=== PATIENT | female | born 1935 | race Caucasian/White ===

== ENCOUNTER 2016-07-05 14:28 | Inpatient (IN) | payer OTHER ==
--- NOTE | ~2016-07-05 | DS ---
Discharge Summary [id number] [place]. [address] NAME: MICHELLE ROBLES : 39 STATUS : DIS IN PAT#: [id number] AGE: 81 ADM/REG DATE : 07/06/16 MR#: [id number] REPORT SERV DATE: 07/14/16 DICTATED BY: PAULY TERRY DATE: 07/13/16 REPORT STATUS : Draft TRANSCRIBED BY: BRIANNA DATE: 07/13/16 ADMISSION DATE: 07/06/2016 DISCHARGE DATE: 07/09/2016 DISCHARGE DIAGNOSES: 1. Right humerus fracture. 2. Hypertension. 3. Urinary tract infection, present on arrival. 4. Cerebrovascular accident history. 5. Right leg swelling with negative ultrasound. DISCHARGE DISPOSITION: SNF to follow up in two to four weeks for humeral fracture. MEDICATIONS: Amlodipine 10 mg one tab p.o. daily; Levaquin 750 mg one tab p.o. at 1800 hours, stop on 07/11/2016; lisinopril 20 mg one tab p.o. daily; clonidine 0.2 mg topical q.7 days; Tylenol over the counter; [place] 5/325 one tab p.o. q.6 hours as needed for breakthrough pain; Zofran 4 q.4; docusate 100 mg one tab p.o. as needed p.r.n. constipation; and Senokot two tabs p.o. at bedtime as needed for constipation. CODE STATUS: DNR. HOSPITAL COURSE: Please see H and P for complete details. HISTORY OF PRESENT ILLNESS: Briefly, Ms. Robles is a 81-year-old female with a past medical history of CVA and expressive aphasia, who reports after having same-level fall and subsequent humeral fracture. The patient was admitted with humeral fracture and additionally same-level fall with also recurrent UTI requiring IV antibiotics. The patient since fall and UTI had decompensation resulting in decreased ability of taking care of self and prior level care with decreased level functioning and ability to care for self particularly from her baseline. The patient was admitted for PT and OT evaluation, orthopedic evaluation. Continue supportive treatment for placement for custodial facility. On day of discharge, son was available, who also expressed difficulties of being able to get patient back to her baseline currently from her prior status due to acute event and was requesting that she would need some extra help to get her back to that prior baseline. The patient was discharged to custodial facility with followup with orthopedic in two to four weeks. DICTATED BY: MD SUGEY Doan/BRIANNA Pauly Terry MD Discharge Summary [address] [address] NAME: MICHELLE ROBLES : 37 STATUS : DIS IN PAT#: [id number] AGE: 81 ADM/REG DATE : 07/06/16 MR#: [id number] REPORT SERV DATE: 07/14/16 DICTATED BY: PAULY TERRY DATE: 07/13/16 REPORT STATUS : Draft TRANSCRIBED BY: BRIANNA DATE: 07/13/16 / [id number] CC: Pauly Terry MD
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
[2016-07-05] MEDS ORDERED: PRIN20 PO (14:34)
[2016-07-05] MEDS ORDERED: ACET500CAP PO (14:36)
[2016-07-06 04:12] LABS: ASCORBIC ACID (UR NOT ORDER) NEG (NEG); BILIRUBIN, URINE NEGATIVE (NEG); KETONE, URINE NEGATIVE (NEG); LEUKOCYTE ESTERASE(NOT OR LARGE (NEG)
[2016-07-06 04:28] LABS: BASOPHILS 0.1 %; BASOPHILS ABSOLUTE 0.01 10/3/uL (0.0-0.16); EOSINOPHILS 0 %; IMMATURE GRANULOCYTES 0.2 %; IMMATURE GRANULOCYTES ABSOLUTE 0.02 10/3/uL (0.0-0.11); LYMPHOCYTES 9.4 %; LYMPHOCYTES ABSOLUTE 0.89 10/3/uL (0.67-4.30); MEAN CORPUS HGB CONC 33.9 g/dL (32.0-36.0); MEAN CORPUSCULAR HEMOGLOB 28.8 pg (26.0-34.0); MEAN PLATELET VOLUME 9.8 fL (9.2-13.0); MONOCYTES 12.5 %; MONOCYTES ABSOLUTE 1.18 10/3/uL (0.21-1.20); NEUTROPHILS 77.8 %; NEUTROPHILS ABSOLUTE 7.36 10/3/uL (2.02-8.40); PLATELET COUNT 235 10/3/uL (150-400); RED CELL COUNT 4.17 10/6/uL (4.0-5.6); WHITE BLOOD CELLS 9.5 10/3/uL (4.5-10.5)
[2016-07-06 04:29] LABS: HEMATOCRIT 35.4 % (36.0-48.0); MANUAL DIFF NO %; MEAN CORPUSCULAR VOLUME 84.9 fL (80-100); RBC DISTRIBUTION WIDTH 17.2 % (12.0-16.0)
[2016-07-06 04:30] LABS: WBC (NOT ORDERED) (RFLEX) > 182 (0-5)
[2016-07-06 04:37] LABS: BUN (BLOOD UREA NITROGEN) 21 MG/DL (6-23); CALCIUM, SERUM 8.4 MG/DL (8.5-10.4); CHLORIDE, SERUM 105 MMOL/L (96-112); CO2 (CARBON DIOXIDE) 27 MMOL/L (24-34); CREATININE 0.82 MG/DL (0.55-1.02); GFR AFRICAN AMERICAN 79 ML/MIN (>=60); GFR NON AFRICAN AMERICAN 68 ML/MIN (>=60); GLUCOSE, SERUM 120 MG/DL (60-99); SODIUM, SERUM 139 MMOL/L (135-148)
[2016-07-07 04:29] LABS: BASOPHILS 0.3 %; BASOPHILS ABSOLUTE 0.02 10/3/uL (0.0-0.16); EOSINOPHILS 0.3 %; EOSINOPHILS ABSOLUTE 0.02 10/3/uL (0.0-0.53); HEMATOCRIT 36.3 % (36.0-48.0); HEMOGLOBIN 11.9 g/dL (12.0-16.0); IMMATURE GRANULOCYTES 0.1 %; IMMATURE GRANULOCYTES ABSOLUTE 0.01 10/3/uL (0.0-0.11); LYMPHOCYTES 12.5 %; LYMPHOCYTES ABSOLUTE 0.97 10/3/uL (0.67-4.30); MEAN CORPUS HGB CONC 32.8 g/dL (32.0-36.0); MEAN CORPUSCULAR VOLUME 85.4 fL (80-100); MEAN PLATELET VOLUME 10.2 fL (9.2-13.0); MONOCYTES 17.2 %; MONOCYTES ABSOLUTE 1.34 10/3/uL (0.21-1.20); NEUTROPHILS 69.6 %; NEUTROPHILS ABSOLUTE 5.43 10/3/uL (2.02-8.40); PLATELET COUNT 237 10/3/uL (150-400); RED CELL COUNT 4.25 10/6/uL (4.0-5.6); WHITE BLOOD CELLS 7.8 10/3/uL (4.5-10.5)
[2016-07-07 04:30] LABS: MANUAL DIFF NO %
[2016-07-07 04:44] LABS: CALCIUM, SERUM 8.6 MG/DL (8.5-10.4); CHLORIDE, SERUM 108 MMOL/L (96-112); CO2 (CARBON DIOXIDE) 28 MMOL/L (24-34); CREATININE 0.55 MG/DL (0.55-1.02); GFR AFRICAN AMERICAN 103 ML/MIN (>=60); GFR NON AFRICAN AMERICAN 89 ML/MIN (>=60); GLUCOSE, SERUM 105 MG/DL (60-99); POTASSIUM, SERUM 3.6 MMOL/L (3.5-5.3); SODIUM, SERUM 142 MMOL/L (135-148)
[2016-07-07 04:45] LABS: BUN (BLOOD UREA NITROGEN) 13 MG/DL (6-23)
[2016-07-09 05:24] LABS: BASOPHILS 0.4 %; BASOPHILS ABSOLUTE 0.03 10/3/uL (0.0-0.16); EOSINOPHILS 1.2 %; EOSINOPHILS ABSOLUTE 0.09 10/3/uL (0.0-0.53); HEMATOCRIT 35.7 % (36.0-48.0); HEMOGLOBIN 11.8 g/dL (12.0-16.0); IMMATURE GRANULOCYTES 0.3 %; IMMATURE GRANULOCYTES ABSOLUTE 0.02 10/3/uL (0.0-0.11); LYMPHOCYTES 17.1 %; LYMPHOCYTES ABSOLUTE 1.27 10/3/uL (0.67-4.30); MEAN CORPUS HGB CONC 33.1 g/dL (32.0-36.0); MEAN CORPUSCULAR HEMOGLOB 28.3 pg (26.0-34.0); MEAN CORPUSCULAR VOLUME 85.6 fL (80-100); MEAN PLATELET VOLUME 9.8 fL (9.2-13.0); MONOCYTES 16.5 %; MONOCYTES ABSOLUTE 1.23 10/3/uL (0.21-1.20); NEUTROPHILS 64.5 %; PLATELET COUNT 266 10/3/uL (150-400); RED CELL COUNT 4.17 10/6/uL (4.0-5.6); WHITE BLOOD CELLS 7.4 10/3/uL (4.5-10.5)
[2016-07-09 05:25] LABS: MANUAL DIFF NO %
[2016-07-09 05:38] LABS: CALCIUM, SERUM 8.4 MG/DL (8.5-10.4); CHLORIDE, SERUM 108 MMOL/L (96-112); CO2 (CARBON DIOXIDE) 26 MMOL/L (24-34); CREATININE 0.61 MG/DL (0.55-1.02); GFR AFRICAN AMERICAN 100 ML/MIN (>=60); GFR NON AFRICAN AMERICAN 86 ML/MIN (>=60); GLUCOSE, SERUM 121 MG/DL (60-99); POTASSIUM, SERUM 3.4 MMOL/L (3.5-5.3); SODIUM, SERUM 140 MMOL/L (135-148)
[2016-07-09 05:44] LABS: BUN (BLOOD UREA NITROGEN) 17 MG/DL (6-23)
== END 2016-07-09 18:55 | DRG 563 ==
LOC: ER 14:28 → 3SO 16:49
PROVIDERS: Student in an Organized Health Care Education/Training Program
DX: S42.301A Unspecified fracture of shaft of humerus, right arm, initial encounter for closed fracture (principal); R47.01 Aphasia; N39.0 Urinary tract infection, site not specified; I10 Essential (primary) hypertension; W18.30XA Fall on same level, unspecified, initial encounter
CPT/HCPCS: 71010; 72170; 73060-RT; 80048; 81001; 82962; 83735; 85025; 87086; 93971; 96374; 97110-GP; 97162-GP; 97530-GP; 99284; A9270-GY; G8978-CM-GP; G8979-CL-GP; J0360; J1956